=== PATIENT | male | born 1965 | race African-American/Black ===

== ENCOUNTER 2018-04-18 20:21 | Emergency (ER) | payer MEDICAID ==
[~2018-04-18] VITALS: Ht 175.3 cm; Wt 102.0 kg
[2018-04-18] MEDS ORDERED: LORAZEPAM 1MG TABLET PO ONE (23:45)
[2018-04-18] MEDS ORDERED: BUPROPION HCL 150MG SR TABLET PO ONE (23:45)
[2018-04-18] MEDS ORDERED: QUETIAPINE FUMARATE 100MG TABLET PO ONE (23:45)
[2018-04-19 00:26] LABS: BASOPHILS % 0.6 % (0.0-2.0); EOSINOPHILS % 1.9 % (0.0-5.0); HEMATOCRIT. 35.9 % (42.0-52.0); HEMOGLOBIN. 11.6 g/dL (14.0-18.0); LYMPHOCYTES % 48.5 % (20.0-50.0); MEAN CORPUSCULAR HEMOGLOBIN 26.9 pg (28.0-32.0); MEAN CORPUSCULAR VOLUME 83.4 fL (80.0-94.0); MEAN PLATELET VOLUME 9.4 fl (7.4-10.4); PLATELET 157 x1000/uL (130-400); RED CELL DISTRIBUTION WIDTH 15.6 % (11.6-14.6)
[2018-04-19 00:34] LABS: CHLORIDE 109 mEq/L (98-107)
[2018-04-19 00:43] LABS: ETHANOL BLOOD < 10 mg/dL
[2018-04-19] MEDS ORDERED: BUPROPION HCL 150MG SR TABLET PO SCH (09:00)
[2018-04-19 09:24] LABS: CANNABINOID URINE SCREEN PRESUMTIVE POSITIVE (NEGATIVE)
[2018-04-19 09:25] LABS: *AMPHETAMINES SCREEN URINE NEGATIVE (NEGATIVE); *BARBITURATES SCREEN URINE NEGATIVE (NEGATIVE); *BENZODIAZEPINES SCREEN URINE NEGATIVE (NEGATIVE); *COCAINE SCREEN URINE PRESUMTIVE POSITIVE (NEGATIVE); PHENCYCLIDINE URINE SCREEN NEGATIVE (NEGATIVE)
[2018-04-19 09:26] LABS: METHADONE URINE SCREEN NEGATIVE (NEGATIVE); OPIATES URINE SCREEN NEGATIVE (NEGATIVE)
[2018-04-19 15:30] VITALS: BP 125/84
[2018-04-19] MEDS ORDERED: QUETIAPINE FUMARATE 100MG TABLET PO SCH (21:00)
== END 2018-04-19 16:04 | disposition home or self-care (01) ==
LOC: ER 21:59
DX: F19.10 Other psychoactive substance abuse, uncomplicated (principal); R45.851 Suicidal ideations; F25.9 Schizoaffective disorder, unspecified; F32.9 Major depressive disorder, single episode, unspecified; I10 Essential (primary) hypertension; F17.200 Nicotine dependence, unspecified, uncomplicated
CPT/HCPCS: 36415; 71045; 80053; 80305; 80307; 80329; 85025; 99285; G0482